=== PATIENT | male | born 1970 | race Caucasian/White ===

== ENCOUNTER 2018-09-03 18:30 | Emergency (ER) | payer SELFPAY ==
[2018-09-03 18:36] VITALS: BMI 27.4
--- NOTE | 2018-09-03 19:36 | C.PDOC ---
History Of Present Illness 47 year old male patient presents to the ER with c/o b/l tingling sensation on his legs for 2 weeks. Associated symptoms includes dizziness, light headedness and intermittent blurry vision. Patient denies syncope, weakness in legs, pain, nausea, vomiting, fever, SOB, chest pain, diarrhea, dysuria and constipation. Patient also denies being a smoker and drug use. He notes he can ambulate and feel his legs, however, they just feel tingly. Time Seen by Provider: 09/03/18 19:06 Chief Complaint (Nursing): Weakness/Neurological Deficit History Per: Patient History/Exam Limitations: no limitations Onset/Duration Of Symptoms: Days (x2 weeks) Current Symptoms Are (Timing): Still Present Past Medical History Reviewed: Historical Data, Nursing Documentation, Vital Signs Vital Signs: Last Vital Signs Temp 99.0 F 09/03/18 18:36 Pulse 91 H 09/03/18 18:36 Resp 18 09/03/18 18:36 BP 133/77 09/03/18 18:36 Pulse Ox 98 09/03/18 18:36 Family History: States: No Known Family Hx - Social History Hx Tobacco Use: Yes Hx Alcohol Use: Yes Hx Substance Use: No - Immunization History Hx Tetanus Toxoid Vaccination: No Hx Influenza Vaccination: No Hx Pneumococcal Vaccination: No Review Of Systems Except As Marked, All Systems Reviewed And Found Negative. Constitutional: Negative for: Fever Eyes: Positive for: Other (intermittent blurry vision ) Cardiovascular: Positive for: Light Headedness. Negative for: Chest Pain Respiratory: Negative for: Shortness of Breath Gastrointestinal: Negative for: Nausea, Vomiting, Diarrhea, Constipation Genitourinary: Negative for: Dysuria Musculoskeletal: Positive for: Other (tingling sensation in b/l legs). Negative for: Leg Pain Neurological: Positive for: Dizziness. Negative for: Weakness, Other (syncope) Physical Exam - Physical Exam Appears: Non-toxic, No Acute Distress Skin: Normal Color, Warm, Dry Head: Atraumatic, Normacephalic Eye(s): bilateral: Normal Inspection, PERRL, EOMI Nose: Normal Oral Mucosa: Moist Throat: Normal Neck: Normal ROM, Supple Chest: Symmetrical, No Deformity Cardiovascular: Rhythm Regular Respiratory: Normal Breath Sounds Gastrointestinal/Abdominal: Soft, No Tenderness Back: No CVA Tenderness Extremity: Normal ROM (x4), No Tenderness, No Pedal Edema, No Calf Tenderness, Capillary Refill (<2 sec), No Deformity Extremity: Bilateral: Atraumatic, Normal Color And Temperature Pulses: Left Dorsalis Pedis: Normal, Right Dorsalis Pedis: Normal Neurological/Psych: Oriented x3, Normal Speech, Normal Motor, Normal Sensation, Normal Reflexes Gait: Steady ED Course And Treatment - Laboratory Results Result Diagrams: 09/03/18 19:31 09/03/18 19:31 O2 Sat by Pulse Oximetry: 98 (RA) Pulse Ox Interpretation: Normal - CT Scan/US CT head Other Rad Studies (CT/US): Read By Radiologist, Radiology Report Reviewed CT/US Interpretation: Name:KENDRA LONG Exam Date:Sep 03, 2018 7:32:45 PM EDT. Modality Type:CT\\SR. Description:CT - BRAIN. Gender:M Laterality:Not applicable. :70 Referring Physician:NEVIN CISNEROS,ALTAGRACIA Bruce EXAM: CT Head Without IV contrast. CLINICAL HISTORY: Parasthesias. TECHNIQUE: Axial computed tomography images of the head/brain without intravenous contrast. COMPARISON: None provided. FINDINGS: BRAIN. No acute intraparenchymal hemorrhage. No mass lesion. No CT evidence for acute territorial infarct. No midline shift or extra-axial collections. VENTRICLES: No hydrocephalus. ORBITS: The orbits are unremarkable. SINUSES AND MASTOIDS: Mild inflammatory changes are present within the ethmoid, sphenoid and maxillary sinuses. BONES: No fracture. IMPRESSION: No acute intracranial abnormality. Mild inflammatory changes paranasal sinuses. Medical Decision Making Medical Decision Making: Impression: b/l tingling legs Plans: -- CT head -- Chem labs -- blood work -- UA Patient received 1L NS bolus. Repeat glucose 325. Patient informed RN that he does have diabetes, but "doesn't believe in it" so he has not been taking his medications. Advised him to be compliant with meds as his symptoms are likely related to diabetes. Follow up as outpatient. Disposition - Disposition Disposition: HOME/ ROUTINE Disposition Time: 22:00 Condition: FAIR Additional Instructions: KENDRA LONG, thank you for letting us take care of you today. Your provider was Altagracia Medrano MD and you were treated for DIZZY, NUMBNESS IN LEGS, BLURRY VISION. The emergency medical care you received today was directed at your acute symptoms. If you were prescribed any medication, please fill it and take as directed. It may take several days for your symptoms to resolve. Return to the Emergency Department if your symptoms worsen, do not improve, or if you have any other problems. Please contact your doctor or call one of the physicians/clinics you have been referred to that are listed on the Patient Visit Information form that is included in your discharge packet. Bring any paperwork you were given at discharge with you along with any medications you are taking to your follow up visit. Our treatment cannot replace ongoing medical care by a primary care provider outside of the emergency department. Thank you for allowing the [facility] team to be part of your care today. If you had an X-Ray or CT scan: A Radiologist will review the ED reading if any change in treatment is needed we will contact you. If you had a blood, urine, or wound culture: It will take several days for the results, if any change in treatment is needed we will contact you. If you had an STI test: It will take 48 hours for the results. Please call after 1 week if you have not heard back. Instructions: Hyperglycemia, Adult (DC), Diabetic Neuropathy (DC) Forms: [employer] (Romanian) - Clinical Impression Clinical Impression: Diabetic neuropathy, Hyperglycemia - Scribe Statement The provider has reviewed the documentation as recorded by the Scribe Jones Do Provider Attestation: All medical record entries made by the Scribe were at my direction and personally dictated by me. I have reviewed the chart and agree that the record accurately reflects my personal performance of the history, physical exam, medical decision making, and the department course for this patient. I have also personally directed, reviewed, and agree with the discharge instructions and disposition.
[2018-09-03 19:39] LABS: BASO # 0.1 K/uL (0.0-0.2); BASO % 0.9 % (0.0-2.0); EOS # 0.1 K/uL (0.0-0.7); EOS % 1.6 % (0.0-4.0); HEMOGLOBIN 14.2 g/dL (12.0-18.0); LYMPH # 2.1 K/uL (1.0-4.3); LYMPH % 29.3 % (20.0-40.0); MEAN CORPUSCULAR HEMOGLOBIN 31.2 pg (27.0-31.0); MEAN CORPUSCULAR HGB CONC 34.7 g/dL (33.0-37.0); MONO # 0.6 K/uL (0.0-0.8); MONO % 8.8 % (0.0-10.0); NEUT # 4.2 K/uL (1.8-7.0); NEUT % 59.4 % (50.0-75.0); RBC 4.55 Mil/uL (4.40-5.90); RED CELL DISTRIBUTION WIDTH 12.8 % (11.5-14.5); WHITE BLOOD COUNT 7.1 K/uL (4.8-10.8)
[2018-09-03 19:42] LABS: URINE BILIRUBIN NEGATIVE (NEGATIVE); URINE BLOOD NEGATIVE (NEGATIVE); URINE CLARITY Clear (Clear); URINE COLOR Straw (YELLOW); URINE GLUCOSE (UA) 3+ mg/dL (Normal); URINE LEUKOCYTE ESTERASE NEG Leu/uL (Negative); URINE PROTEIN NEGATIVE (NEGATIVE); URINE UROBILINOGEN NORMAL mg/dL (0.2-1.0)
[2018-09-03 19:55] LABS: BLOOD UREA NITROGEN 16 mg/dL (9-20); CALCIUM 9.4 mg/dl (8.6-10.4); GFR NON-AFRICAN AMERICAN > 60
[2018-09-03] MEDS ORDERED: Sodium Chloride 0.9% 1,000 ML IV ONE (20:08)
[2018-09-03 22:28] VITALS: BP 131/82; PULSE 71; RESP 22; TEMP 98.7; O2SAT 100
--- NOTE | 2018-09-04 08:39 | CT ---
Date of service: 09/03/2018 PROCEDURE: CT HEAD WITHOUT CONTRAST. HISTORY: Paresthesias COMPARISON: None available. TECHNIQUE: Axial computed tomography images were obtained through the head/brain without intravenous contrast. Radiation dose: Total exam DLP = 1043.02 mGy-cm. This CT exam was performed using one or more of the following dose reduction techniques: Automated exposure control, adjustment of the mA and/or kV according to patient size, and/or use of iterative reconstruction technique. FINDINGS: HEMORRHAGE: No intracranial hemorrhage. BRAIN: No mass effect or edema. The morgan-white matter differentiation appears intact. Please note that MRI with diffusion imaging is more sensitive in the detection of acute ischemic event. VENTRICLES: No hydrocephalus. CALVARIUM: Unremarkable. PARANASAL SINUSES: Mucosal thickening of the right maxillary and left sphenoid sinuses. Mucosal thickening of the ethmoid air cells. MASTOID AIR CELLS: Unremarkable as visualized. No inflammatory changes. OTHER FINDINGS: None. IMPRESSION: No acute intracranial pathology identified. Mucosal thickening of the right maxillary and left sphenoid sinuses. Mucosal thickening of the ethmoid air cells. Preliminary impression was provided by [employer].
== END 2018-09-03 22:41 | disposition home or self-care (01) ==
LOC: C.ER 18:30
DX: E11.40 Type 2 diabetes mellitus with diabetic neuropathy, unspecified (principal); E11.65 Type 2 diabetes mellitus with hyperglycemia; Z72.0 Tobacco use
CPT/HCPCS: 70450; 80048; 81001; 82009; 82948; 85025; 96360; 99285; J7030

== ENCOUNTER 2018-09-07 18:13 | Emergency (ER) | payer OTHER ==
[2018-09-07 18:13] VITALS: BMI 27.4
--- NOTE | 2018-09-07 18:50 | C.PDOC ---
History Of Present Illness Mr. Sims is a 47 year old male with newly diagnosed DM, HTN comes to [facility] today for abdominal pain x2 hours. It started suddenly at work, but he worked through the pain since there was only 30 more minutes of work and came straight to the hospital after getting off. The generalized squeezing pain is now at a 6/10 with radiation around his sides to his back. He has felt nauseous since the pain started but was able to thwart vomiting. Last full meal was his normal soup at 1pm; last drink was water 2 hours ago upon leaving work. Denies urinary or BM changes - last BM and urination were this AM. Patient denies this pain ever before, hasn't tried any medication to make it better. Notes that he started glimepiride and enalapril today. <Patricia Negro - Last Filed: 09/07/18 20:39> <Patricia Negro - Last Filed: 09/07/18 20:39> <Romana Dickens - Last Filed: 09/07/18 21:43> Chief Complaint (Nursing): Abdominal Pain Past Medical History Vital Signs: Last Vital Signs Temp 98.7 F 09/07/18 18:18 Pulse 68 09/07/18 18:18 Resp 18 09/07/18 18:18 BP 114/76 09/07/18 18:18 Pulse Ox 99 09/07/18 18:18 - Medical History PMH: Diabetes, HTN Family History: States: Unknown Family Hx - Social History Hx Tobacco Use: Yes Hx Alcohol Use: Yes Hx Substance Use: No - Immunization History Hx Tetanus Toxoid Vaccination: No Hx Influenza Vaccination: No Hx Pneumococcal Vaccination: No <Patricia Negro - Last Filed: 09/07/18 20:39> Vital Signs: Last Vital Signs Temp 98 F 09/07/18 20:58 Pulse 78 09/07/18 20:58 Resp 18 09/07/18 20:58 BP 126/73 09/07/18 20:58 Pulse Ox 98 09/07/18 20:58 <Romana Dickens - Last Filed: 09/07/18 21:43> Review Of Systems Constitutional: Positive for: Weakness, Malaise. Negative for: Fever, Chills, Sweats, Weight loss Eyes: Negative for: Pain, Vision Change Cardiovascular: Negative for: Chest Pain, Palpitations, Edema, Light Headedness Respiratory: Negative for: Cough, Shortness of Breath, Hemoptysis, SOB with Excertion, Wheezing Gastrointestinal: Positive for: Nausea, Abdominal Pain. Negative for: Vomiting, Diarrhea, Constipation Genitourinary: Negative for: Dysuria, Frequency, Incontinence Musculoskeletal: Positive for: Back Pain. Negative for: Neck Pain, Shoulder Pain, Arm Pain Skin: Negative for: Rash Neurological: Negative for: Weakness, Numbness, Incoordination, Change in Speech, Confusion, Seizures, Altered Mental Status Psych: Negative for: Anxiety, Depression <Mary Negroberly - Last Filed: 09/07/18 20:39> Physical Exam - Physical Exam Appears: Non-toxic, No Acute Distress Skin: Normal Color, Warm, Dry Head: Atraumatic, Normacephalic Eye(s): bilateral: Normal Inspection, PERRL, EOMI Oral Mucosa: Moist Cardiovascular: Rhythm Regular, Rhythm Irregular Respiratory: Normal Breath Sounds, No Accessory Muscle Use, No Rales, No Rhonchi, No Wheezing Gastrointestinal/Abdominal: Bowel Sounds, Soft, Tenderness (TTP in all 4 quadran ts. upon palpation, greatest in the RUQ. Caceres's sign positive), No Distention, Guarding, No Rebound Back: CVA Tenderness (bilateral CVA tenderness) Pulses: Left Radial: Normal, Right Radial: Normal, Left Dorsalis Pedis: Normal, Right Dorsalis Pedis: Normal Neurological/Psych: Oriented x3, Normal Speech, Normal Cognition <Patricia Negro - Last Filed: 09/07/18 20:39> ED Course And Treatment - Laboratory Results Result Diagrams: 09/07/18 18:59 09/07/18 18:59 O2 Sat by Pulse Oximetry: 99 <NegroPatricia Mitzy - Last Filed: 09/07/18 20:39> - Laboratory Results Result Diagrams: 09/07/18 18:59 10 18:59 Lab Interpretation: No Acute Changes (Glucose 227) Pulse Ox Interpretation: Normal - CT Scan/US US ABD Other Rad Studies (CT/US): Read By Radiologist CT/US Interpretation: History. RUQ pain. Comparison. None. Technique. Sonographic evaluation of the right upper quadrant of the abdomen. Findings. Liver. Measures 12.76 cm in length. Increased echogenicity of the liver parenchyma. No mass. No intrahepatic bile duct dilatation. Gallbladder. Unremarkable. No gallstones. Wall thickness 0.14 cm. Common bile duct. Measures 2.9 mm. No stones. No dilatation. Pancreas. Limited visualization. Right kidney. Measures 11.68 x 4.64 x 5.6 cm in length. Normal echogenicity. No calculus, mass, or hydronephrosis. Aorta. No aneurysmal dilatation. IVC. Unremarkable. Other Findings. None. Impression. Fatty liver. No acute pathology. Reevaluation Time: 21:42 Reassessment Condition: Improved (Abdomen soft and nontender. Pain is completely resolved.) <Romana Dickens - Last Filed: 09/07/18 21:43> Medical Decision Making Medical Decision Making: Patient was here yesterday including lipid panel Repeat CBC, CMP, lipase unremarkable POC glucose 213 Limited US of RUQ Toradol given for pain - marked improvement <Patricia Negro - Last Filed: 09/07/18 20:39> Disposition <Patricia Negro - Last Filed: 09/07/18 20:39> Counseled Patient/Family Regarding: Studies Performed, Diagnosis, Need For Followup - Disposition Disposition Time: 21:43 <Romana Dickens - Last Filed: 09/07/18 21:43> - Disposition Referrals: Angelita Murcia MD [Medical Doctor] - Disposition: HOME/ ROUTINE Condition: IMPROVED Additional Instructions: Stick to a bland diet while still experiencing pain. If you experience nausea, vomiting, diarrhea, or other worsening symptoms, do not hesitate to come back to the ED. Drink plenty of fluids. Please follow up with your PMD to reconcile your newly diagnosed diabetes and associated medications. Instructions: Stomach Ache and Stomach Upset Forms: [employer] (Latvian) - Clinical Impression Clinical Impression: Abdominal pain, Abdominal colic - PA / SALES MERCHANDISING SPECIALIST / Resident Statement / has reviewed & agrees with the documentation as recorded. / has examined the patient and agrees with the treatment plan. <Patricia Negro - Last Filed: 09/07/18 20:39>
[2018-09-07 19:04] LABS: BASO % 0.4 % (0.0-2.0); EOS # 0.1 K/uL (0.0-0.7); EOS % 1.1 % (0.0-4.0); HEMOGLOBIN 13.9 g/dL (12.0-18.0); LYMPH # 1.4 K/uL (1.0-4.3); LYMPH % 18.5 % (20.0-40.0); MEAN CELL VOLUME 89.2 fL (80.0-94.0); MEAN CORPUSCULAR HGB CONC 34.8 g/dL (33.0-37.0); MEAN PLATELET VOLUME 10.1 fL (7.2-11.7); MONO # 0.6 K/uL (0.0-0.8); MONO % 7.6 % (0.0-10.0); NEUT # 5.7 K/uL (1.8-7.0); NEUT % 72.4 % (50.0-75.0); RBC 4.48 Mil/uL (4.40-5.90); RED CELL DISTRIBUTION WIDTH 12.8 % (11.5-14.5); WHITE BLOOD COUNT 7.8 K/uL (4.8-10.8)
[2018-09-07 19:14] LABS: ALB/GLOB RATIO 1.3 (1.0-2.1); ALBUMIN 4.2 g/dL (3.5-5.0); ALT/SGPT 48 U/L (21-72); AST/SGOT 30 U/L (17-59); BLOOD UREA NITROGEN 9 mg/dL (9-20); CALCIUM 9.2 mg/dl (8.6-10.4); GFR NON-AFRICAN AMERICAN > 60; LIPASE 85 U/L (23-300)
[2018-09-07 22:01] VITALS: BP 110/68; PULSE 88; RESP 16; TEMP 98; O2SAT 99
--- NOTE | 2018-09-08 08:59 | US ---
Right upper quadrant abdominal ultrasound HISTORY: Right upper quadrant abdominal pain. COMPARISON: CT scan dated 09/04/2013 TECHNIQUE: Real-time sonography was performed through the right upper quadrant of the abdomen. FINDINGS: LIVER: 12.8 centimeters in length. Increased echogenicity of the hepatic parenchymal cortex suggestive for fatty infiltration versus hepatic parenchymal disease. Clinical correlation. Gallbladder: No calculi or sludge. Normal wall thickness of 1.4 millimeters. Negative sonographic Caceres's sign. Common bile duct measures 2.9 millimeters, within normal limits. Limited visualization of the pancreas. Right kidney: 11.7 x 4.6 x 5.6 centimeters. No calculi or hydronephrosis. IMPRESSION: 1. Increased echogenicity of the hepatic parenchymal cortex suggestive for fatty infiltration versus hepatic parenchymal disease. Clinical correlation. 2. Limited visualization of the pancreas. A preliminarily reported was submitted on 09/07/2018 at 9:[address] Darian Post from [id number].
== END 2018-09-07 22:00 | disposition home or self-care (01) ==
LOC: C.ER 18:13
DX: R10.84 Generalized abdominal pain (principal)
CPT/HCPCS: 76705; 80053; 82948; 83690; 85025; 96374; 99284; J1885